=== PATIENT | female | born 1970 | race Caucasian/White ===

== ENCOUNTER → 2021-01-06 | Outpatient (CLI) | payer OTHER ==
[~2021-01-06] MED LIST: BUPR150T11 PO; DULO60CA7 PO; MELO15TA23 PO; OMEP20TA8 PO
--- NOTE | 2021-01-11 13:58 | RAD ---
EXAM: Bilateral digital screening mammogram with tomosynthesis. HISTORY: 50-year-old female presents for screening mammography. TECHNIQUE: Full-field digital craniocaudal and mediolateral oblique 2D and 3D tomosynthesis images of both breasts are obtained for evaluation. Computer aided detection was applied. COMPARISON: 02/11/2018 and 01/24/2016 BREAST PARENCHYMAL DENSITY: Level C - Heterogeneously dense. FINDINGS: There has been interval increase in a circumscribed nodular density within the 12:00 positi on of the left breast at mid depth. The slow interval change favors a benign cystic etiology. There a re additional areas of nodularity and asymmetry which are stable in appearance. There are few benign calcifications. IMPRESSION: BI-RADS Category 0: Incomplete. Additional imaging needed. RECOMMENDATION: Further evaluation with a left breast sonogram is recommended to assess in increasing circumscribed nodular density within the 12:00 position at mid depth. The slow interval change favor s a benign cystic or fibroadenomatoid etiology. If your mammogram demonstrates that you have dense breast tissue, which could hide abnormalities, and if you have other risk factors for breast cancer that have been identified, you might benefit from s upplemental screening tests that may be suggested by your ordering physician. Dense breast tissue, i n and of itself, is a relatively common condition. This information is not provided to cause undue c oncern, but rather to raise your awareness and to promote discussion with your physician regarding th e presence of other risk factors, in addition to dense breast tissue. A report of your mammography re sults will be sent to you and your physician. You should contact your physician if you have any ques tions or concerns regarding this report. Mammography is a sensitive method for finding small breast cancers, but it does not detect them all a nd is not a substitute for careful clinical examination. A negative mammogram does not negate a clin ically suspicious finding and should not result in delay in biopsying a clinically suspicious abnorma lity. PQRS compliance statement - Patient information was entered into a reminder system with a target due date for the next mammogram. "Our facility is accredited by the [employer] Mammography [employer]." Electronically signed by: Mariella Michael MD (01/11/2021 1:56 PM) [id number]
== END ==
LOC: MAMMO 08:51
PROVIDERS: ATTEND Obstetrics & Gynecology
DX: Z12.31 Encounter for screening mammogram for malignant neoplasm of breast (principal); R92.1 Mammographic calcification found on diagnostic imaging of breast; N63.42 Unspecified lump in left breast, subareolar
CPT/HCPCS: 77063; 77067

== ENCOUNTER → 2021-01-27 | Outpatient (CLI) | payer OTHER ==
--- NOTE | 2021-01-27 13:31 | RAD ---
US BREAST LTD LT History:Reason: LT BREAST CALLBACK / Spl. Instructions: / History: Comparison: Mammogram January 06, 2021 and February 11, 2018 Technique: Sonographic examination of the left breast was performed and multiple static images were obtained. Findings: Well-circumscribed cyst within the left breast 12:00 position measures 1.2 x 1.8 x 0.7 cm correspondi ng with mammographic finding. Immediately adjacent is a solid hypoechoic mass measures 0.8 x 0.6 x 1. 0 cm. Additional cysts identified in the 1:00 position 4 cm from the nipple measures 1.0 x 0.5 0.8 cm . Impression: 1. Well-circumscribed hypoechoic mass within the left breast at 12:00 position, may represent fibroa denoma. Recommend 6 month follow-up to ensure stability. 2. Two left breast cysts. BI-RADS Category 3: Probably Benign. Recommend 6 follow-up ultrasound. Electronically signed by: Herve Arana DO (01/27/2021 1:29 PM) [id number]
== END ==
LOC: US 12:49
PROVIDERS: ATTEND Obstetrics & Gynecology
DX: N60.02 Solitary cyst of left breast (principal); R92.2 Inconclusive mammogram
CPT/HCPCS: 76642

== ENCOUNTER → 2021-07-21 | Outpatient (CLI) | payer OTHER ==
[~2021-07-21] MED LIST changes: -BUPR150T11 PO; +BUPR150T24 PO; -OMEP20TA8 PO; +OMEP20TA91 PO
--- NOTE | 2021-07-21 14:05 | RAD ---
DIAGNOSTIC LEFT BREAST ULTRASOUND INDICATION: Short interval follow-up probably benign left breast hypoechoic mass COMPARISON: Ultrasound 01/27/2021. Mammogram 01/06/2021. FINDINGS: In the 12:00 radial of the left breast, 4 cm from the nipple there is redemonstration of a hypoechoic ovoid parallel mass measuring 0.7 x 0.6 x 0.6 cm with increased through transmission. This is not si gnificantly changed from comparison. Additional anechoic left breast cyst in the 12:00 radial 4 cm fr om the nipple measuring 2.1 x 0.9 x 1.4 cm. IMPRESSION: 1. No significant change probably benign 0.7 cm hypoechoic ovoid mass with increased through transmi ssion likely representing fibroadenoma or complex cyst. ASSESSMENT: BI-RADS 3: Probably Benign. RECOMMENDATION: Short interval, 6 month follow-up bilateral diagnostic mammogram and left breast ultr asound. The facility will notify the patient of the results via mail. Patient information will be entered int o the mammography reminder system with a target recall date for the next mammogram. A reminder letter will be generated by the facility. Electronically signed by: Tim Alexandre MD (07/21/2021 2:03 PM) [id number]
== END ==
LOC: US 13:18
PROVIDERS: ATTEND Obstetrics & Gynecology
DX: R92.8 Other abnormal and inconclusive findings on diagnostic imaging of breast (principal)
CPT/HCPCS: 76641